=== PATIENT | male | born 1950 | race Two or more races ===

== ENCOUNTER 2018-05-13 14:53 | Outpatient (CLI) | payer OTHER | END 2018-05-13 15:01 | disposition home or self-care (01) | LOC: SONOGRAMA 14:53 | DX: N50.811 Right testicular pain (principal) ==

== ENCOUNTER → 2019-02-04 | Emergency (ER) | payer OTHER ==
[~2019-02-04] VITALS: Ht 175.3 cm; Wt 72.6 kg
[~2019-02-04] MED LIST: AUGMENTIN PO; PLAVIX75 MG; [UNRECOGNIZED DRUG - OTHER]
== END | disposition home or self-care (01) ==
LOC: ER 17:19
DX: S61.228A Laceration with foreign body of other finger without damage to nail, initial encounter (principal); W27.8XXA Contact with other nonpowered hand tool, initial encounter; Y93.89 Activity, other specified; Y92.098 Other place in other non-institutional residence as the place of occurrence of the external cause; Y99.8 Other external cause status

== ENCOUNTER 2019-08-06 07:38 | Outpatient (CLI) | payer OTHER | END 2019-08-06 07:49 | disposition home or self-care (01) | LOC: SONOGRAMA 07:38 | DX: R74.8 Abnormal levels of other serum enzymes (principal) ==

== ENCOUNTER → 2019-10-04 | Outpatient (CLI) | payer OTHER | END | disposition home or self-care (01) | LOC: TOM 08:26 | DX: R07.89 Other chest pain (principal) ==

== ENCOUNTER 2021-08-27 14:11 | Emergency (ER) | payer OTHER ==
[~2021-08-27] VITALS: Ht 177.8 cm; Wt 72.6 kg
[2021-08-27] MEDS ORDERED: NORVASC2.5 MG PO (14:52)
[2021-08-27] MEDS ORDERED: AMLODIPINE-OLM1 EACH (14:53)
== END 2021-08-27 20:46 | disposition home or self-care (01) ==
LOC: ER 14:11
DX: M79.642 Pain in left hand (principal)

== ENCOUNTER 2022-06-15 08:12 | Emergency (ER) | payer OTHER ==
[~2022-06-15] VITALS: Ht 177.8 cm; Wt 70.3 kg
[~2022-06-15 08:12] MED LIST changes: +AMLODIPINE-OLM1 EACH; +NORVASC2.5 MG PO
[2022-06-15] MEDS ORDERED: AMLODIPINE BESYL5 MG PO (08:31)
[2022-06-15] MEDS ORDERED: ROSUVASTATIN CA40 MG PO (08:31)
== END 2022-06-15 11:40 | disposition home or self-care (01) ==
LOC: ER 08:12
DX: S33.9XXA Sprain of unspecified parts of lumbar spine and pelvis, initial encounter (principal)

== ENCOUNTER 2022-08-19 08:01 | Outpatient (CLI) | payer OTHER ==
[~2022-08-19 08:01] MED LIST changes: +AMLODIPINE BESYL5 MG PO; +ROSUVASTATIN CA40 MG PO
== END 2022-08-19 08:03 | disposition home or self-care (01) ==
LOC: RAD 08:01
DX: M54.2 Cervicalgia (principal)

== ENCOUNTER 2022-12-05 11:10 | Emergency (ER) | payer OTHER ==
[~2022-12-05] VITALS: Ht 177.8 cm; Wt 73.5 kg
[2022-12-05] MEDS ORDERED: FISH OIL 1,2001 EAC1 (11:46)
== END 2022-12-05 15:19 | disposition home or self-care (01) ==
LOC: ER 11:10
DX: K81.0 Acute cholecystitis (principal); I10 Essential (primary) hypertension

== ENCOUNTER 2023-07-16 07:23 | Outpatient (CLI) | payer OTHER ==
[~2023-07-16 07:23] MED LIST changes: +FISH OIL 1,2001 EAC1
== END 2023-07-16 07:24 | disposition home or self-care (01) ==
LOC: NUCLEAR 07:23
DX: R10.84 Generalized abdominal pain (principal)
CPT/HCPCS: 78227; A9537; J2805

== ENCOUNTER 2023-07-24 07:18 | Outpatient (CLI) | payer OTHER | END 2023-07-24 07:20 | disposition home or self-care (01) | LOC: NUCLEAR 07:18 | DX: R10.84 Generalized abdominal pain (principal) | CPT/HCPCS: 78264; A9541 ==

== ENCOUNTER 2023-09-10 12:20 | Emergency (ER) | payer OTHER ==
[~2023-09-10] VITALS: Ht 177.8 cm; Wt 68.0 kg
[2023-09-10] MEDS ORDERED: MAXITROL EYE DRO5 ML OP (13:03)
== END 2023-09-10 13:37 | disposition home or self-care (01) ==
LOC: ER
DX: H10.31 Unspecified acute conjunctivitis, right eye (principal)

== ENCOUNTER 2023-11-01 08:54 | Outpatient (CLI) | payer OTHER ==
[~2023-11-01 08:54] MED LIST changes: +MAXITROL EYE DRO5 ML OP
== END 2023-11-01 08:59 | disposition home or self-care (01) ==
LOC: RAD 08:54
PROVIDERS: ATTEND Internal Medicine
DX: J44.9 Chronic obstructive pulmonary disease, unspecified (principal)

== ENCOUNTER 2024-05-19 07:26 | Outpatient (CLI) | payer OTHER ==
[~2024-05-19 07:26] MED LIST changes: +CRESTOR20 MG PO; +NORVASC5 MG PO; +PLAVIX75 MG PO
== END 2024-05-19 07:30 | disposition home or self-care (01) ==
LOC: SONOGRAMA 07:26
PROVIDERS: ATTEND Internal Medicine
DX: M25.552 Pain in left hip (principal)

== ENCOUNTER → 2024-08-07 | Emergency (ER) | payer OTHER ==
[~2024-08-07] VITALS: Ht 177.8 cm; Wt 69.4 kg
[~2024-08-07] MED LIST changes: +TETANUS & DIPHTHERIA TOX,ADULT 0.5 ML VIAL IM ONE; +TETANUS IMMUNE GLOBULIN/PF 250 UNIT SYRINGE IM STA
== END | disposition left against medical advice (07) ==
LOC: ER 12:02
DX: S61.041A Puncture wound with foreign body of right thumb without damage to nail, initial encounter (principal); W45.0XXA Nail entering through skin, initial encounter; Y93.89 Activity, other specified; Y92.89 Other specified places as the place of occurrence of the external cause

== ENCOUNTER 2024-09-25 07:10 | Emergency (ER) | payer OTHER ==
[~2024-09-25] VITALS: Ht 177.8 cm; Wt 71.7 kg
[~2024-09-25 07:10] MED LIST changes: -TETANUS & DIPHTHERIA TOX,ADULT 0.5 ML VIAL IM ONE; -TETANUS IMMUNE GLOBULIN/PF 250 UNIT SYRINGE IM STA
== END 2024-09-25 09:23 | disposition home or self-care (01) ==
LOC: ER 07:13
DX: L73.9 Follicular disorder, unspecified (principal); Z88.6 Allergy status to analgesic agent

== ENCOUNTER 2024-11-29 14:24 | Outpatient (CLI) | payer OTHER | END 2024-11-29 14:29 | disposition home or self-care (01) | LOC: RAD 14:24 | PROVIDERS: ATTEND Orthopaedic Surgery Adult Reconstructive Orthopaedic Surgery | DX: M17.11 Unilateral primary osteoarthritis, right knee (principal); M17.12 Unilateral primary osteoarthritis, left knee ==

== ENCOUNTER 2025-03-24 12:27 | Outpatient (CLI) | payer OTHER | END 2025-03-24 12:32 | disposition home or self-care (01) | LOC: RAD 12:27 | PROVIDERS: ATTEND Orthopaedic Surgery Adult Reconstructive Orthopaedic Surgery | DX: M17.11 Unilateral primary osteoarthritis, right knee (principal); M17.12 Unilateral primary osteoarthritis, left knee; Z96.651 Presence of right artificial knee joint ==

== ENCOUNTER 2025-04-15 07:56 | Emergency (ER) | payer OTHER ==
[~2025-04-15] VITALS: Ht 177.8 cm; Wt 70.8 kg
[2025-04-15] MEDS ORDERED: ELIQUIS2.5 MG PO (08:34)
[2025-04-15] MEDS ORDERED: MILLIPRED5 MG (08:34)
[2025-04-15] MEDS ORDERED: ZANAFLEX4 M1 (08:35)
[2025-04-15] MEDS ORDERED: DIPHENHYDRAMINE HCL 50 MG CAPSULE PO STA (08:52)
[2025-04-15] MEDS ORDERED: DIPHENHYDRAMINE HCL 50 MG/ML VIAL 1ML ONE (08:55)
[2025-04-15] MEDS ORDERED: DIPHENHYDRAMINE HCL 50 MG/ML VIAL 1ML IM STA (08:56)
== END 2025-04-15 09:12 | disposition home or self-care (01) ==
LOC: ER 07:56
DX: L50.9 Urticaria, unspecified (principal); R21 Rash and other nonspecific skin eruption; Z88.6 Allergy status to analgesic agent
CPT/HCPCS: 96372; 99282; J1200